=== PATIENT | female | born 1975 ===

== ENCOUNTER 2019-06-23 11:33 | Inpatient (IN) | payer MEDICAID, OTHER, SELFPAY ==
[2019-06-23] MEDS ORDERED: Oxytocin 10 UNITS/ML VIAL ONE (11:59)
[2019-06-23] MEDS ORDERED: NS / Oxytocin 40 units/1000ml 1,000 ML ONE (12:02)
[2019-06-23] MEDS ORDERED: Ondansetron PF 4 MG/2 ML Vial IVP PRN (12:19)
[2019-06-23] MEDS ORDERED: HYDROcodone/Acetaminophen 5/325 mg Tablet PO PRN ×2 (12:19)
[2019-06-23] MEDS ORDERED: Benzocaine-Menthol 82.5 ML CAN TOP PRN (12:19)
[2019-06-23] MEDS ORDERED: Milk Of Magnesia 30 ML UDCUP PO PRN (12:19)
[2019-06-23] MEDS ORDERED: Bisacodyl 10 MG SUPP PR PRN (12:19)
[2019-06-23] MEDS ORDERED: Adacel (T-DAP) 0.5 ML SYRINGE IM ONE (12:19)
[2019-06-23] MEDS ORDERED: hydrALAZINE 20 MG/ML VIAL SLOW IVP PRN (12:19)
[2019-06-23] MEDS ORDERED: Methylergonovine 0.2 MG/ML VIAL IM PRN (12:19)
--- NOTE | 2019-06-23 12:22 | PDOC.LDHP ---
Labor and Delivery H&P Chief complaint: contractions HPI: Patient started kortney at 0330 this am. Current gestational age (weeks): 38 Due date: 07/07/19 Dating criteria: last menstrual period Grav: 6 Para: 5 OB History Details: 2001 40w2d 8.7lbs 2005 39 wk 8.15lbs 2007 39 7.15lbs 2009 39 weeks. 6.9lbs 2014 39 weeks 7.5lbs 2019 current Current complications: other (advanced maternal age) Abnormal US findings: No Current medications: pre-abiodun vitamins Previous surgical history: other (Diastasis recti repair 05/18/17) Social history: none - Physical Exam Vital signs reviewed and normal: yes General: breathing through contractions Lungs: nonlabored breathing Abdomen: gravid FHT: category 1 (FHTs auscultated 130s) - Vaginal Exam cm dilated: 10 Effacement: 100% Station: 2+ - OB Labs Blood type: O RH: positive Antibody Screen: negative HIV: negative RPR: negative HEPSAg: negative 1 hour GCT: negative GBS: negative Rubella: immune - Assessment L&D Assessment: term patient in labor - Plan Plan: admit to L&D (Anticipate .)
[2019-06-23] MEDS ORDERED: NS / Oxytocin 40 units/1000ml 1,000 ML IV SCH (12:30)
--- NOTE | 2019-06-23 12:31 | PDOC.OPDEL ---
OB Operative/Delivery Note Delivery Dr/Surgeon: Bernardo Cuevas Pre-Delivery Diagnosis: active labor Procedure/Post Delivery Dx: spontaneous vaginal delivery Weeks gestation: 38 Anesthesia: none - Findings A Sex: female Weight: 6 lb 8 oz - 1 min: 9 - 5 min: 9 - Additional Findings/Plan Placenta delivered: spontaneous Repaired Obstetrical Laceration: none Estimated blood loss: 250mL Post delivery plan: routine recovery
[2019-06-23 13:24] VITALS: BMI 21.6
[2019-06-23 15:30] LABS: #Lymphocytes 0.9 thou/uL (1.20-3.40); #Monocytes 0.3 thou/uL (0.11-0.59); #Neutrophils 4.4 thou/uL (1.40-6.50); %Basophils 0.4 % (0.0-1.0); %Eosinophils 0.3 % (0.0-10.0); %Lymphocytes 16.4 % (21.0-51.0); %Monocytes 5.5 % (0.0-10.0); %Neutrophils 77.4 % (42.0-75.0); Mean Corpuscular HGB CONC 33.7 g/dL (32.0-36.0); Mean Corpuscular Hemoglobin 27.5 pg (27.0-31.0); Mean Corpuscular Volume 81.7 fL (78.0-98.0); Mean Platelet Volume 11.9 fL (7.4-10.4); Platelet Count 145 thou/uL (130-400); RBC Distribution Width 13.7 % (11.5-14.5); Red Blood Cell (RBC) Count 3.99 mill/uL (4.20-5.40); White Blood Cell (WBC) Count 5.7 thou/uL (4.8-10.8)
[2019-06-23 16:07] LABS: Syphilis Antibody Nonreactive (Nonreactive); Syphilis Antibody Index 0.06 S/CO (<1.00 Non-Reactive)
[2019-06-23 16:08] LABS: HBSAg Index 0.17 S/CO (0-0.99); Hep B Surf Ag Non-Reactive S/CO (NonReactive)
[2019-06-23] MEDS: Ibuprofen 800 MG TAB PO SCH ×2 (17:06→21:42)
[2019-06-23] MEDS: Ferrous Sulfate 325 MG TAB PO SCH (17:06)
[2019-06-23] MEDS: Docusate Calcium (SURFAK) 240 MG CAP PO SCH (21:41)
[2019-06-24] MEDS: Ibuprofen 800 MG TAB PO SCH ×2 (05:00→15:06)
[2019-06-24] MEDS: Ferrous Sulfate 325 MG TAB PO SCH ×2 (07:50→17:24)
[2019-06-24] MEDS: Docusate Calcium (SURFAK) 240 MG CAP PO SCH (09:14)
[2019-06-24 11:43] VITALS: BP 116/67; TEMP 98.7
== END 2019-06-24 18:00 | disposition home or self-care (01) | DRG 807 ==
LOC: L&D/OP 11:33 → L&D-LIB 12:13 → 3SW 16:51
PROVIDERS: ADMIT Obstetrics & Gynecology; ATTEND Obstetrics & Gynecology
PROC: 10E0XZZ Delivery of Products of Conception, External Approach (ICD-10-PCS; principal; 2019-06-24)
DX: O80 Encounter for full-term uncomplicated delivery (principal); Z37.0 Single live birth; Z3A.38 38 weeks gestation of pregnancy
CPT/HCPCS: 36415; 85025; 86780; 86900; 86901; 87340; J2590